=== PATIENT | female | born 1965 | race Hispanic/Latino ===

== ENCOUNTER 2016-09-16 16:38 | Emergency (ER) | payer OTHER ==
--- NOTE | 2016-09-16 17:40 | ER PHYSICIAN DOCUMENTATION ---
Physician Documentation [facility] Name:Anita Valdez Age:51 yrs Sex:Female :1965 Arrival Date:09/16/2016 Time:16:38 Bed4 Private MD:Preethi Isbell ED, [place] Disposition: 09/16/16 17:33 Discharged to Home/Self Care. Impression: Bladder Infection (UTI), Dysfunctional Uterine Bleeding (DUB). - Condition is Good. - Discharge Instructions: BLADDER INFECTION, Female (Adult), DYSFUNCTIONAL UTERINE BLEEDING. - Prescriptions for Bactrim DS 160- 800 mg Oral Tablet - take 1 tablet by ORAL route every 12 hours for 7 days; 14 tablet. - Medical Reconciliation form form. - Follow up: Eran Paez MD; When: 1 week; Reason: Recheck today's complaints, Continuance of care. - Problem is new. - Symptoms are unchanged. HPI: 09/16 17:29 This 51 yrs old Female presents to ER via Private Vehicle with complaints of sc dysuria. 17:29 The patient presents with urinary symptoms, dysuria, frequency, hematuria, hesitancy, sc incontinence, vaginal bleeding that is. Onset: The symptoms/episode began/occurred 4 day(s) ago. Modifying factors: The symptoms are alleviated by nothing. Associated signs and symptoms: Pertinent positives: vaginal bleeding. The patient is sexually active. The patient's method of control includes BCP, no regular menses since bcp 5 years ago, irreg bleeding worse recently but ongoing x several years, recommended fu with Dr. Bryant and pt had been intending to. Historical: - Allergies: No known drug Allergies; - Home Meds: 1. Metformin Oral 2. Metamucil Smooth Texture Oral 3. micronor - PMHx: Diabetes - IDDM; HIGH CHOLESTEROL; CONSTIPATION; - PSHx: ; - Tetanus: unknown. - Ebola Screening: : Patient negative for fever greater than or equal to 101.5 degrees Fahrenheit, and additional compatible Ebola Virus Disease symptoms. - Immunization history: Flu Vaccine < 1 year. - Social history: Smoking status: Patient states was never smoker of tobacco. ROS: 17:31 Positive for urinary symptoms, Negative for flank pain. sc 17:31 Constitutional: Negative for fever, chills, and weight loss. sc Eyes: Negative for injury, pain, redness, and discharge. Cardiovascular: Negative for chest pain, palpitations, and edema. Respiratory: Negative for shortness of breath, cough, wheezing, and pleuritic chest pain. Abdomen/GI: Negative for abdominal pain, nausea, vomiting, diarrhea, and constipation. Skin: Negative for injury, rash, and discoloration. 17:31 Neuro: Negative for headache, weakness, numbness, tingling, and seizure. Exam: Constitutional: This is a well developed, well nourished patient who is awake, alert, and in no acute distress. Head/Face: Normocephalic, atraumatic. Neck: Trachea midline, no thyromegaly or masses palpated, and no cervical lymphadenopathy. Supple, full range of motion without nuchal rigidity, or vertebral point tenderness. No meningismus. Abdomen/GI: Soft, non-tender, with normal bowel sounds. No distension or tympany. No guarding or rebound. No evidence of tenderness throughout. 17:32 Back: No spinal tenderness. No costovertebral tenderness. Full range of motion. sc 17:32 : CVA tenderness, is absent, Pelvic Exam: the exam is deferred. 17:33 Abdomen/GI: Palpation: abdomen is soft and non-tender. ks Vital Signs: 17:00 BP 165 / 97; Pulse 75; Resp 17; Temp 98.2(O); Pulse Ox 94% on R/A; Weight 64.41 kg; rh Height 4 ft. 11 in. (149.86 cm); Pain 3/10; 17:00 Body Mass Index 28.68 (64.41 kg, 149.86 cm) rh MDM: 17:22 Patient medically screened. sc 17:32 Differential diagnosis: dysfunctional uterine bleeding, urinary tract infection. Data ks reviewed: vital signs, nurses notes, lab test result(s), and as a result, I will discharge patient, administer antibiotics. Counseling: I had a detailed discussion with the patient and/or guardian regarding: the historical points, exam findings, and any diagnostic results supporting the discharge/admit diagnosis, lab results, the need for outpatient follow up. 09/16 17:23 Order name: HCG, URINE; Complete Time: 17:34 EDMS 09/16 17:34 Interpretation: Normal. ks Dispensed Medications: No medications were administered Point of Care Testing: Urine Dip: 17:00 pH: 6.0; ; Specific [place]: 1.005; Ketones: Negative; Glucose: Negative; Protein: rh Negative; Leukocytes: Positive; Nitrite: Negative ; Blood: Large (+++); Bilirubin: Negative ; Urobilinogen: Normal Signatures: Yasmani Goodman MD MD sc Hofsess, Rachel
--- NOTE | 2016-09-16 17:40 | ER NURSING DOCUMENTATION ---
Nurse's Notes [facility] Name:Anita Valdez Age:51 yrs Sex:Female :1965 Arrival Date:09/16/2016 Time:16:38 Bed4 Private MD:Preethi Isbell Diagnosis:Bladder Infection (UTI);Dysfunctional Uterine Bleeding (DUB) Presentation: 09/16 16:40 Acuity: YOLANDA 4 rh 16:51 Presenting complaint: Patient states: Pt has had some urinary urgency and frequency. no rh burning with urination. Pt also states some black/brown vaginal discharge that is new today. Pt is currently still on control and hasn't had a normal period in 4-5 years she says. Transition of care: Home. 16:51 Method Of Arrival: Private Vehicle Triage Assessment: 16:58 General: Appears in no apparent distress, Behavior is cooperative. General: Denies rh fever, chills. Pain: Complains of pain in groin and suprapubic area Quality of pain is described as heavy, pressure. EENT: Oral mucosa is moist. Neuro: Level of Consciousness is awake, alert, obeys commands. GI: Denies nausea. : Urine is blood tinged, Reports cramping discharge from vagina that is since Yesterday Brown turning into Black urgency urinary frequency. Historical: - Allergies: No known drug Allergies; - Home Meds: 1. Metformin Oral 2. Metamucil Smooth Texture Oral 3. micronor - PMHx: Diabetes - IDDM; HIGH CHOLESTEROL; CONSTIPATION; - PSHx: ; - Tetanus: unknown. - Ebola Screening: : Patient negative for fever greater than or equal to 101.5 degrees Fahrenheit, and additional compatible Ebola Virus Disease symptoms. - Immunization history: Flu Vaccine < 1 year. - Social history: Smoking status: Patient states was never smoker of tobacco. Screenin:00 Infectious Disease Risk None. Abuse screen: Denies threats or abuse. Denies injuries rh from another. Nutritional screening: No deficits noted. Assessment: 17:00 See Triage Assessment done by same RN. rh Vital Signs: 17:00 BP 165 / 97; Pulse 75; Resp 17; Temp 98.2(O); Pulse Ox 94% on R/A; Weight 64.41 kg; rh Height 4 ft. 11 in. (149.86 cm); Pain 3/10; 17:00 Body Mass Index 28.68 (64.41 kg, 149.86 cm) ED Course: 16:40 Patient arrived in ED. lm3 16:40 Preethi Isbell DO is Private Physician. lm3 16:40 Dhara Ortega is Primary Nurse. rh 16:40 Triage completed. rh 17:00 Valuables Remains with patient Patient has correct armband on for positive rh identification. Bed in low position. Call light in reach. Side rails up X 1. Family accompanied patient. 17:22 Yasmani Goodman MD is Attending Physician. al 17:32 Eran Paez MD is Referral Physician. al Administered Medications: No medications were administered Point of Care Testing: Urine Dip: 17:00 pH: 6.0; ; Specific [place]: 1.005; Ketones: Negative; Glucose: Negative; Protein: rh Negative; Leukocytes: Positive; Nitrite: Negative ; Blood: Large (+++); Bilirubin: Negative ; Urobilinogen: Normal Outcome: 17:33 Discharge ordered by . al 17:39 Discharged to home ambulatory, with significant other. rh 17:39 Condition: stable 17:39 Discharge Assessment: Patient awake, alert and oriented x 3. No cognitive and/or functional deficits noted. Patient verbalized understanding of disposition instructions. 17:39 Discharge instructions given to patient, significant other, Instructed on discharge instructions, follow up and referral plans. medication usage, no drinking with medication, Demonstrated understanding of instructions, medications, Prescriptions given X 1. 17:40 Patient left the ED. 09/17 10:58 Discharge F/U Call: Spoke with: patient. Have you filled your prescriptions? yes. lp Have you made a f/u appointment? Overall Care on a scale of 1-10 with 10 being the best care, you rate our care as: the rating of 10. Signatures: Cece Murry RN RN Yasmani Goodman MD MD al Dhara Ortega Marsha Ashton lm3
== END 2016-09-16 17:40 | disposition home or self-care (01) ==
LOC: ER 16:38
DX: N39.0 Urinary tract infection, site not specified (principal); N92.5 Other specified irregular menstruation; N93.8 Other specified abnormal uterine and vaginal bleeding; E11.9 Type 2 diabetes mellitus without complications; Z79.899 Other long term (current) drug therapy
CPT/HCPCS: 84703; 99282